=== PATIENT | male | born 1975 | race Caucasian/White ===

== ENCOUNTER 2020-06-18 03:30 | Emergency (ER) | payer OTHER ==
[~2020-06-18] VITALS: Ht 182.9 cm; Wt 74.8 kg
[~2020-06-18 03:30] MED LIST: AMOX500 PO; AZIT250 PO; BACPOLTO30 TOP; BENZ2 PO; BENZOTROPINE; Benadryl 50 mg50 MG PO; CEPH500 PO; CETI10 PO; CODACE30 PO; DICL25ER PO; DIPH25 PO; DIPH50 PO; HYDACE5 PO; IBUP800 PO; INVEGA IM; LORAZEPAM; MIRT15 PO; Mobic15 MG PO; NAPR550 PO; OLAN10 PO; OMEP40CA12 PO; OXYACE5T PO; PENVK500 PO; PRED20 PO; PSEU120ER PO; Percocet 5-3251 EACH PO; QUET100 PO; RISP1; RISP2; RISP2 PO; RXNAPNA550 PO; RXTRAM50 PO; SULTRIDS PO; TOBR.3OPSO OP; TOCO400; TRAM50 PO; TRIH2 PO
== END 2020-06-18 03:56 | disposition home or self-care (01) ==
LOC: ER 03:30
DX: R45.1 Restlessness and agitation (principal); J40 Bronchitis, not specified as acute or chronic; F31.9 Bipolar disorder, unspecified; E11.9 Type 2 diabetes mellitus without complications; F17.210 Nicotine dependence, cigarettes, uncomplicated; Z79.899 Other long term (current) drug therapy
CPT/HCPCS: 99281

== ENCOUNTER 2020-06-20 22:30 | Emergency (ER) | payer OTHER ==
[~2020-06-20] VITALS: Ht 182.9 cm; Wt 72.1 kg
[2020-06-21] MEDS ORDERED: IBUP600 PO (00:27)
[2020-06-21] MEDS ORDERED: PENVK500 PO (00:27)
== END 2020-06-21 00:44 | disposition home or self-care (01) ==
LOC: ER 22:30
DX: K02.9 Dental caries, unspecified (principal); E11.9 Type 2 diabetes mellitus without complications; F31.9 Bipolar disorder, unspecified; F17.210 Nicotine dependence, cigarettes, uncomplicated
CPT/HCPCS: 99282; A9270-GY

== ENCOUNTER 2020-06-23 05:25 | Emergency (ER) | payer OTHER ==
[~2020-06-23] VITALS: Ht 182.9 cm; Wt 72.1 kg
[~2020-06-23 05:25] MED LIST changes: +IBUP600 PO
== END 2020-06-23 10:06 | disposition home or self-care (01) ==
LOC: ER 05:25
DX: J20.8 Acute bronchitis due to other specified organisms (principal); B97.89 Other viral agents as the cause of diseases classified elsewhere; E11.9 Type 2 diabetes mellitus without complications; Z20.828 Contact with and (suspected) exposure to other viral communicable diseases
CPT/HCPCS: 71045; 99283-25; U0003

== ENCOUNTER 2020-06-25 15:54 | Emergency (ER) | payer OTHER | END 2020-06-25 16:05 | disposition left against medical advice (07) | LOC: ER 15:54 | DX: Z53.21 Procedure and treatment not carried out due to patient leaving prior to being seen by health care provider (principal) ==

== ENCOUNTER 2020-06-27 10:10 | Emergency (ER) | payer OTHER ==
[~2020-06-27] VITALS: Ht 182.9 cm; Wt 72.1 kg
== END 2020-06-27 11:36 | disposition home or self-care (01) ==
LOC: ER 10:10
DX: J40 Bronchitis, not specified as acute or chronic (principal); F43.12 Post-traumatic stress disorder, chronic; F31.9 Bipolar disorder, unspecified; E11.9 Type 2 diabetes mellitus without complications; F17.210 Nicotine dependence, cigarettes, uncomplicated
CPT/HCPCS: 99282

== ENCOUNTER 2020-06-29 05:45 | Emergency (ER) | payer OTHER ==
[~2020-06-29] VITALS: Ht 182.9 cm; Wt 72.1 kg
== END 2020-06-29 07:18 | disposition home or self-care (01) ==
LOC: ER 05:45
DX: F31.9 Bipolar disorder, unspecified (principal); E11.9 Type 2 diabetes mellitus without complications; F17.210 Nicotine dependence, cigarettes, uncomplicated; Z76.0 Encounter for issue of repeat prescription; Z79.899 Other long term (current) drug therapy
CPT/HCPCS: 99283

== ENCOUNTER 2020-07-03 23:41 | Emergency (ER) | payer OTHER ==
[~2020-07-03] VITALS: Ht 182.9 cm; Wt 68.0 kg
[2020-07-04] MEDS ORDERED: IBU600 MG PO (00:27)
== END 2020-07-04 01:14 | disposition home or self-care (01) ==
LOC: ER 23:41
DX: K08.89 Other specified disorders of teeth and supporting structures (principal); E11.9 Type 2 diabetes mellitus without complications; F17.210 Nicotine dependence, cigarettes, uncomplicated
CPT/HCPCS: 99282

== ENCOUNTER 2020-07-09 00:15 | Emergency (ER) | payer OTHER ==
[~2020-07-09] VITALS: Ht 182.9 cm; Wt 72.1 kg
[~2020-07-09 00:15] MED LIST changes: +IBU600 MG PO
[2020-07-09] MEDS ORDERED: CEPH500 PO (04:04)
== END 2020-07-09 04:22 | disposition home or self-care (01) ==
LOC: ER 00:15
DX: L03.113 Cellulitis of right upper limb (principal); E11.9 Type 2 diabetes mellitus without complications; F17.210 Nicotine dependence, cigarettes, uncomplicated
CPT/HCPCS: 99282; A9270-GY

== ENCOUNTER 2020-07-10 16:57 | Emergency (ER) | payer OTHER ==
[~2020-07-10] VITALS: Ht 182.9 cm; Wt 71.7 kg
== END 2020-07-10 18:09 | disposition home or self-care (01) ==
LOC: ER 16:57
DX: R05 Cough (principal); F31.9 Bipolar disorder, unspecified; F20.9 Schizophrenia, unspecified; E11.9 Type 2 diabetes mellitus without complications; F17.210 Nicotine dependence, cigarettes, uncomplicated
CPT/HCPCS: 71045; 99283-25; Q0163

== ENCOUNTER 2020-07-12 22:58 | Emergency (ER) | payer OTHER ==
[~2020-07-12] VITALS: Ht 182.9 cm; Wt 83.9 kg
== END 2020-07-13 01:29 | disposition home or self-care (01) ==
LOC: ER 22:58
DX: F31.9 Bipolar disorder, unspecified (principal); E11.9 Type 2 diabetes mellitus without complications; F17.210 Nicotine dependence, cigarettes, uncomplicated; Z86.59 Personal history of other mental and behavioral disorders; Z76.0 Encounter for issue of repeat prescription
CPT/HCPCS: 99283

== ENCOUNTER 2020-07-17 22:21 | Emergency (ER) | payer OTHER ==
[~2020-07-17] VITALS: Ht 165.1 cm; Wt 72.6 kg
== END 2020-07-17 22:34 | disposition home or self-care (01) ==
LOC: ER 22:21
DX: F31.9 Bipolar disorder, unspecified (principal); F20.9 Schizophrenia, unspecified; F17.210 Nicotine dependence, cigarettes, uncomplicated
CPT/HCPCS: 99282

== ENCOUNTER 2022-01-18 02:02 | Emergency (ER) | payer OTHER ==
[~2022-01-18] VITALS: Ht 180.3 cm; Wt 72.6 kg
[2022-01-18] MEDS ORDERED: NAPR500 PO (02:13)
== END 2022-01-18 02:32 | disposition home or self-care (01) ==
LOC: ER 02:02
DX: M79.604 Pain in right leg (principal); E11.9 Type 2 diabetes mellitus without complications; F17.210 Nicotine dependence, cigarettes, uncomplicated
CPT/HCPCS: 99283; A9270

== ENCOUNTER 2022-01-24 03:20 | Emergency (ER) | payer OTHER ==
[~2022-01-24] VITALS: Ht 185.4 cm; Wt 72.6 kg
[~2022-01-24 03:20] MED LIST changes: +NAPR500 PO
== END 2022-01-24 06:34 | disposition home or self-care (01) ==
LOC: ER 03:20
DX: Z76.0 Encounter for issue of repeat prescription (principal); E11.9 Type 2 diabetes mellitus without complications; F17.210 Nicotine dependence, cigarettes, uncomplicated
CPT/HCPCS: 99281

== ENCOUNTER 2022-01-28 11:29 | Emergency (ER) | payer OTHER ==
[~2022-01-28] VITALS: Ht 182.9 cm; Wt 78.9 kg
[2022-01-28] MEDS ORDERED: REMERON PO (11:53)
== END 2022-01-28 11:53 | disposition home or self-care (01) ==
LOC: ER 11:29
DX: Z76.0 Encounter for issue of repeat prescription (principal); F31.9 Bipolar disorder, unspecified; E11.9 Type 2 diabetes mellitus without complications; F17.210 Nicotine dependence, cigarettes, uncomplicated; Z79.899 Other long term (current) drug therapy
CPT/HCPCS: 99281

== ENCOUNTER 2022-02-03 03:49 | Emergency (ER) | payer OTHER ==
[~2022-02-03] VITALS: Ht 182.9 cm; Wt 79.4 kg
[~2022-02-03 03:49] MED LIST changes: +REMERON PO
[2022-02-03 07:27] LABS: BASOPHILS PERCENT AUTO 1 % (0-2); EOSINOPHILS ABSOLUTE AUTO 0.07 K/mm3 (0.00-0.68); EOSINOPHILS PERCENT AUTO 1 % (0-6); Hematocrit 30.8 % (37.0-53.0); Hemoglobin 9.4 g/dL (13.5-17.5); IMMATURE GRAN ABSOLUTE AUTO 0.04 K/mm3 (0.00-0.10); IMMATURE GRAN PERCENT AUTO 1 % (0-1); LYMPHOCYTES ABSOLUTE AUTO 2.19 K/mm3 (0.84-5.20); LYMPHOCYTES PERCENT AUTO 29 % (21-46); MONOCYTES ABSOLUTE AUTO 1.02 K/mm3 (0.16-1.47); MONOCYTES PERCENT AUTO 13 % (4-13); Mean Corpuscular HGB 23.5 pg (26.0-34.0); Mean Corpuscular HGB Conc 30.5 g/dL (31.5-36.5); Mean Corpuscular Volume 77 fL (80-100); Mean Platelet Volume 8.8 fL (9.1-12.4); NEUTROPHILS ABSOLUTE AUTO 4.27 K/mm3 (1.96-9.15); NEUTROPHILS PERCENT AUTO 56 % (41-73); Platelet Count 445 K/mm3 (150-400); RDW Coefficient Variation 18.5 % (11.7-14.2); RDW Standard Deviation 50.9 fL (35.1-46.3); White Blood Cell Count 7.69 K/mm3 (4.00-11.30)
[2022-02-03 07:46] LABS: Ethanol (Alcohol), Blood, Med <3 mg/dL; Salicylate <1.7 mg/dL (2.8-20.0)
[2022-02-03 07:58] LABS: Alanine Aminotransfer (ALT/SGP 68 U/L (12-78); Albumin, Blood 3.4 g/dL (3.4-5.0); Albumin/Globulin Ratio 0.9 (0.8-1.8); Alk Phos 85 U/L (50-136); Anion Gap 7 mmol/L (6-16); Aspartate Aminotrans (AST/SGOT 50 U/L (12-37); Bilirubin, Total 0.8 mg/dL (0.1-1.0); Blood Urea Nitrogen 33 mg/dL (8-24); Bun/Creatinine Ratio 43.8 (12.0-20.0); CO2, Blood 24 mmol/L (21-32); Calcium, Blood 8.1 mg/dL (8.5-10.1); Chloride, Blood 109 mmol/L (98-108); Creatinine, Blood 0.75 mg/dL (0.60-1.20); Globulin, Blood 3.8 g/dL (2.2-4.0); Glomerular Filtration Rate 113 (60-); Glucose, Blood 98 mg/dL (70-99); Potassium, Blood 3.9 mmol/L (3.5-5.5); Sodium, Blood 140 mmol/L (136-145); Total Protein, Blood 7.2 g/dL (6.4-8.2)
[2022-02-03 08:03] LABS: Acetaminophen, Random <2.0 ug/mL (10.0-30.0)
[2022-02-03] MEDS ORDERED: QUET100 PO (08:28)
[2022-02-03 09:34] LABS: Influenza A, PCR NEGATIVE (NEGATIVE); Influenza B, PCR NEGATIVE (NEGATIVE); Resp Syncytial Virus, PCR NEGATIVE (NEGATIVE); SARS-Cov-2 (COVID-19) PCR, MMC NEGATIVE (NEGATIVE)
== END 2022-02-03 08:56 | disposition home or self-care (01) ==
LOC: ER 03:49
PROVIDERS: Student in an Organized Health Care Education/Training Program
DX: F25.9 Schizoaffective disorder, unspecified (principal); E11.9 Type 2 diabetes mellitus without complications; F15.11 Other stimulant abuse, in remission; Z87.891 Personal history of nicotine dependence; Z79.899 Other long term (current) drug therapy
CPT/HCPCS: 0241U; 80053; 85025; 93005; 93010; A9270; G0480

== ENCOUNTER 2022-02-10 13:45 | Emergency (ER) | payer OTHER ==
[~2022-02-10] VITALS: Ht 182.9 cm; Wt 63.5 kg
== END 2022-02-10 14:15 | disposition left against medical advice (07) ==
LOC: ER 13:45
DX: Z04.89 Encounter for examination and observation for other specified reasons (principal); E11.9 Type 2 diabetes mellitus without complications; Z87.891 Personal history of nicotine dependence
CPT/HCPCS: 99281

== ENCOUNTER 2024-03-02 22:48 | Emergency (ER) | payer OTHER ==
[~2024-03-02] VITALS: Ht 182.9 cm; Wt 68.0 kg
[2024-03-02] MEDS ORDERED: Amitriptyline H10 MG PO (23:47)
[2024-03-03 00:05] VITALS: BP 118/87
[2024-03-03] MEDS ORDERED: SYNTHROID50 MC1 PO (00:05)
== END 2024-03-03 00:05 | disposition home or self-care (01) ==
LOC: ER 22:48
DX: Z76.0 Encounter for issue of repeat prescription (principal); E11.9 Type 2 diabetes mellitus without complications; Z87.891 Personal history of nicotine dependence; Z79.899 Other long term (current) drug therapy
CPT/HCPCS: 99281

== ENCOUNTER 2024-04-19 00:07 | Emergency (ER) | payer OTHER ==
[~2024-04-19] VITALS: Ht 170.2 cm; Wt 68.0 kg
[~2024-04-19 00:07] MED LIST changes: +Amitriptyline H10 MG PO; +SYNTHROID50 MC1 PO
[2024-04-19 00:10] VITALS: BP 101/90
[2024-04-19] MEDS ORDERED: Ketorolac Tromethamine 30mg Vial IM ONE (00:20)
[2024-04-19] MEDS ORDERED: Droperidol 5 mg/2 ml Vial IM ONE (00:20)
[2024-04-19] MEDS ORDERED: CEPH500 PO (22:49)
== END 2024-04-19 00:40 | disposition home or self-care (01) ==
LOC: ER 00:07
DX: R51.9 Headache, unspecified (principal); E11.9 Type 2 diabetes mellitus without complications; Z87.891 Personal history of nicotine dependence; Z79.899 Other long term (current) drug therapy; L03.116 Cellulitis of left lower limb; Z88.0 Allergy status to penicillin
CPT/HCPCS: 96372; 99283; 99283-25; A9270; J1790; J1885

== ENCOUNTER 2024-04-25 01:05 | Emergency (ER) | payer OTHER ==
[~2024-04-25] VITALS: Ht 185.4 cm; Wt 68.0 kg
[2024-04-25 01:22] VITALS: BP 129/92
== END 2024-04-25 03:04 | disposition home or self-care (01) ==
LOC: ER 01:05
DX: S90.512A Abrasion, left ankle, initial encounter (principal); M79.642 Pain in left hand; W22.8XXA Striking against or struck by other objects, initial encounter; Z88.0 Allergy status to penicillin; Z79.899 Other long term (current) drug therapy; E11.9 Type 2 diabetes mellitus without complications; Z87.891 Personal history of nicotine dependence
CPT/HCPCS: 73120; 73600; 99283-25